=== PATIENT | female | born 1960 | race Caucasian/White ===

== ENCOUNTER 2024-08-22 14:50 | Emergency (ER) | payer MEDICAID, SELFPAY ==
[2024-08-22 14:55] VITALS: BP 148/86; PULSE 61; RESP 18; TEMP 36.9; O2SAT 98
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
[2024-08-22 15:23] VITALS: BMI 41.5
[2024-08-22 15:41] LABS: Collection Type, Urine Clean Catch
--- NOTE | 2024-08-22 15:44 | PD.EDSUICD ---
ED Psych RME/HPI General Chief Complaint: Suicidal Stated Complaint: 5150 Time Seen by Provider: 08/22/24 15:47 Arrival date/time: 08/22/24 14:50 RME / HPI RME / HPI Narrative: DR. MEJIA MAIN ED EVALUATION: 63 year old female with past medical history significant for hypertension, lower back pain, and depression presents to the Emergency Department brought in by police for suicidal ideation. Placed on a 72 hour hold by police for feeling suicidal. Patient called [facility] requesting someone to pick her up due to not wanting to live anymore. She told police she did not want to live anymore and if they did not give her a ride to the hospital she was gonna take care of it herself ; patient does not elaborate on her plan. No other symptoms reported. Related Data Home Medications ?Medication ?Instructions ?Recorded ?Confirmed folic acid 1 mg tablet 1 mg PO QDAY 10/14/17 04/16/22 ergocalciferol (vitamin D2) 1,250 50,000 unit PO QWEEK 04/18/18 04/16/22 mcg (50,000 unit) capsule (Drisdol) allopurinol 100 mg tablet 100 mg PO QDAY 04/16/22 04/16/22 atorvastatin 20 mg tablet 20 mg PO QDAY 04/16/22 04/16/22 bupropion HCl 150 mg tablet,12 hr 150 mg PO QDAY 04/16/22 04/16/22 sustained-release duloxetine 60 mg capsule,delayed 60 mg PO QDAY 04/16/22 04/16/22 release gabapentin 600 mg tablet 600 mg PO BID 04/16/22 04/16/22 levothyroxine 50 mcg tablet 50 mcg PO QDAY 04/16/22 04/16/22 tramadol 50 mg tablet 100 mg PO QID PRN Pain 04/16/22 04/16/22 triamterene 37.5 1 tab PO QDAY 04/16/22 04/16/22 mg-hydrochlorothiazide 25 mg tablet Allergies Allergy/AdvReac Type Severity Reaction Status Date / Time contact metal agent Allergy Intermediate Blister Verified 08/22/24 16:09 LEATHER Allergy Intermediate BLISTERS Uncoded 08/22/24 16:09 Review of Systems Review of Systems Systems Reviewed: All systems reviewed, normal except as documented Narrative Review of Systems: GEN: No fever, no chills, no weight loss EYES: No discharge, no visual changes, no pain HEENT: No ear pain, no congestion, no sore throat PULM: No shortness of breath, no cough, no congestion CV: No chest pain, no dyspnea on exertion, no palpitations GI: No nausea, no vomiting, no diarrhea, no pain, no constipation : No frequency, no urgency and no dysuria MUSC/SKEL: No joint pain, no back pain SKIN: No rash PSYCH: No hallucinations, + depression, + suicidal ideation HEME/LYMPH: No easy bleeding or bruising tendencies NEURO: No weakness, no headache Past Medical History Past Medical History NEUROLOGIC: Positive Migraine CARDIAC: Positive Cardiac Disorders and Hypertension RESPIRATORY: Positive Pneumonia; Negative Tuberculosis GASTROINTESTINAL: Positive Hemorrhoids, Gastroesophageal Reflux Disease and Obesity; Negative Hepatitis, Cirrhosis, Gastrointestinal Bleed or Hiatal Hernia GENITOURINARY: Negative Renal Disease or Kidney Stones REPRODUCTIVE: Positive Endometriosis and Previous Pregnancies; Negative Gonorrhea or Syphilis MUSCULOSKELETAL: Positive Arthritis, Osteoporosis and Gout; Negative Fractures ENT: Negative Cataracts, Blind, Retinal Detachment, Ear Infection or Deafness ENDOCRINE: Positive Hypothyroidism; Negative Endocrine Disorders, Diabetes Mellitus Type 1 or Diabetes Mellitus Type 2 HEMATOLOGIC: Positive Anemia; Negative Sickle Cell Disease or Clotting Problems PSYCHO/SOCIAL: Positive Depression and Anxiety; Negative Eating Disorder OTHER HISTORY: Positive Hospitalization, Shingles, Falls and Chicken Pox; Negative Autoimmune Disease, Blood Transfusions, Anesthesia Reactions, Organ Transplant, Chemotherapy, MRSA, VRSA, Vancomycin-Resistant Enterococci, Human Immunodeficiency Virus (HIV), Clostridium Difficile or Cancer Family History FAMILY HISTORY: Positive Family Respiratory Disorders, Family Cardiac Disorders, Family Cancer and Family Surgery; Negative Family Psychiatric Problems or Family Anesthesia Reaction Surgical History SURGICAL: Positive Hysterectomy; Negative Cardiac Surgery, Endocrine Surgery, Eye Surgery, Nose Surgery, Oral Surgery, Throat Surgery, Abdominal Surgery, Nephrectomy or Organ Transplant Social History SMOKING STATUS: Never smoker SUBSTANCE USE: does not use ALCOHOL: Never ED Exam Narrative Physical exam: GENERAL APPEARANCE: AxOx4, generally well-appearing, no acute distress. HEENT: NC, AT. MMM. EOMI, clear conjunctiva, oropharynx clear. NECK: Supple without lymphadenopathy. No stiffness or restricted ROM. HEART: Normal rate and regular rhythm, normal S1/S1, no m/r/g LUNGS: CTAB, moving air well. No crackles or wheezes are heard. ABDOMEN: Soft, nontender, nondistended with good bowel sounds heard. BACK: No midline C/T/L spine pain or deformity, No CVAT, no obvious deformity. EXTREMITIES: Without cyanosis, clubbing or edema. MUSCULOSKELETAL: FROM of all major joints, no chest tenderness NEUROLOGICAL: Grossly nonfocal. Alert and oriented, moving all 4 extremities. CN not formally tested but appear grossly intact. Observed to ambulate with normal gait. Skin: Warm and dry without any rash. Course Course Course Narrative: 1800: Patient was signed out to Dr. Hill. Past medical, surgical, social and family history reviewed. Vitals and home medications reviewed. Results and treatment plan discussed. They will assume the care of the patient at this time and will follow the patient, pateint on a hold pending psychiatric placement. Quality Measures none Orders Category Date Time Status Diet Regular Diet 08/23/24 Breakfast Active CBC Stat Lab 08/22/24 16:43 Completed CMP [Comprehensive Metabolic Panel] Stat Lab 08/22/24 16:43 Completed Drug Screen,Urine Stat Lab 08/22/24 16:26 Ordered Urinalysis, C/S if Indicated Stat Lab 08/22/24 16:26 Ordered Urine Culture Stat Lab 08/22/24 15:25 Received DiphenhydrAMINE INJ [Benadryl Inj] Med 08/22/24 16:30 Discontinued 50 mg IM X1 ONE LORazepam [Ativan Inj] Med 08/22/24 16:30 Discontinued 2 mg IM X1 ONE cephALEXin [Keflex] Med 08/22/24 21:00 Active 500 mg PO BID Late Tray Request Routine Oth 08/22/24 18:01 Active Vital Signs Vital signs: Vital Signs Temperature 98.4 F 08/22/24 14:55 Pulse Rate 61 08/22/24 14:55 Respiratory Rate 18 08/22/24 14:55 Blood Pressure 148/86 H 08/22/24 14:55 Pulse Oximetry (%) 98 08/22/24 14:55 Oxygen Delivery Method Room Air 08/22/24 14:55 Psych MDM Narrative MDM Narrative:: Yumiko Mcpherson am scribing for and in the presence of Dr. Mejia. Patient data External records reviewed:: [facility] previous records (Reviewed last admission discharge dated 04/19/22, patient admitted for the following: Fall) Clinical information provided by:: patient and law enforcement Social determinants that could affect healthcare access:: mental health Patient has the following chronic illnesses:: hypertension, lower back pain, depression How is presenting disease/condition affected by chronic disease/condition?: caused by Evaluation data The following diagnostics were reviewed and interpreted by me:: lab results Lab and/or radiology exams considered but not ordered:: none Interpretation Summary: pending labs Medications / Prescriptions Medications or Prescriptions considered but not ordered:: none Medication administrations:: Medication Administration History Cephalexin HCl (Cephalexin 250 Mg Capsule) 500 mg PO BID DIONY Stop: 08/25/24 20:59 Discontinued Medications Diphenhydramine HCl (Diphenhydramine Inj 50 Mg/Ml Vial) 50 mg IM X1 ONE Stop: 08/22/24 16:31 Lorazepam (Lorazepam 2 Mg/Ml Vial) 2 mg IM X1 ONE Stop: 08/22/24 16:31 see above if any Consultations Consultation(s) initiated? (list below): No Diagnosis Psych Differential Diagnosis: suicidal ideation, depression and acute anxiety Most likely diagnosis given after review of the tests above:: Depression, suicidal ideation Admission Indicated Admission indicated?: not indicated Admission Request Was there a request for admission?: No Disposition Plan Disposition Plan: other (specify) (Patient signout to the night manager provider.) Discharge Plan Prescriptions/Referrals Prescriptions/Med Rec: No Action folic acid 1 mg Tablet 1 mg PO QDAY ergocalciferol (vitamin D2) [Drisdol] 50,000 unit Capsule 50,000 unit PO QWEEK bupropion HCl 150 mg tablet sustained-release 12 hr 150 mg PO QDAY Patient Comments: take 1 tablet by mouth once daily gabapentin 600 mg tablet 600 mg PO BID atorvastatin 20 mg tablet 20 mg PO QDAY Patient Comments: take 1 tablet by mouth once daily allopurinol 100 mg tablet 100 mg PO QDAY tramadol 50 mg tablet 100 mg PO QID PRN (Reason: Pain) Patient Comments: take 2 tablets by mouth four times a day if needed for pain levothyroxine 50 mcg tablet 50 mcg PO QDAY Patient Comments: take 1 tablet by mouth once daily 30 MINUTES BEFORE BREAKFAST triamterene-hydrochlorothiazid 37.5-25 mg tablet 1 tab PO QDAY Patient Comments: take 1 tablet by mouth once daily duloxetine 60 mg capsule,delayed release(DR/EC) 60 mg PO QDAY Patient Comments: take 1 capsule by mouth once daily Problem List Clinical Impression: Suicidal ideation Patient/Caregiver Discharge Instructions Print Language: Indonesian
[2024-08-22 15:48] LABS: Bacteria,Urine Rare; Bilirubin,Urine Negative (Negative); Blood,Urine Negative (Negative); Clarity,Urine Clear (Clear/Hazy); Color,Urine Yellow (Lt Yel-Yel); Glucose, Urine Negative (Negative); Ketones,Urine Negative (Negative); Leukocyte Esterase,Urine Positive (Negative); Nitrite,Urine Positive (Negative); Protein,Urine Negative (Neg - Trace); RBC,Urine 1 /hpf (0-3); Specific Gravity,Urine 1.019 (1.001-1.035); Squamous Epithelial Cell,Urine 2 /hpf (0-5); Urobilinogen,Urine Negative mg/dL (0.0-1.0); WBC,Urine 11 /hpf (0-5)
[2024-08-22 15:51] LABS: Culture Indicated,Urine Yes
[2024-08-22 16:03] LABS: Amphetamine/Methamp Scrn,U Negative (Negative); Barbiturate Screen,Urine Negative (Negative); Benzodiazepines Screen,Urine Negative (Negative); Benzoylecgonine Screen, Ur Negative (Negative); Fentanyl Screen,Urine Negative (Negative); Opiate Screen,Urine Negative (Negative); THC Screen,Urine Negative (Negative)
--- NOTE | 2024-08-22 16:15 | PC.NURSE ---
Patient demanding to leave, uncooperative, throwing gloves on the floor, attempting to get into c locker, sitter at bedside notified nurse, patient able to be redirected to sit on gurney, however, patient being demanding, verbally abusive to staff, informed patient she can not leave do to 72hr hold placed by [employer], security called to bedside, Dr. mcpherson made aware.
--- NOTE | 2024-08-22 16:15 | PC.NURSE ---
PT THROWING ITEMS IN ROOM NOT WANTING TO LISTEN, BEING NON COMPLIANT AND ARGUMENTATIVE
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
[2024-08-22 16:55] LABS: Basophils % (Auto) 1 % (0-2.5); Eosinophils # (Auto) 0.4 Thou/mm3 (0.0-0.5); Eosinophils % (Auto) 5 % (0-10); Hematocrit 40.7 % (36.0-46.0); Hemoglobin 13.6 g/dL (12.0-16.0); Immature Granulocytes % (Auto) 1 % (0-0); Immature Granulocytes Auto 0.04 Thou/mm3 (0.00-0.00); Lymphocytes # (Auto) 1.7 Thou/mm3 (1.0-4.8); Lymphocytes % (Auto) 22 % (10-50); Mean Corpuscular HGB Conc 33.4 g/dl (31.0-37.0); Mean Corpuscular Hemoglobin 28.3 pg (25.0-35.0); Mean Corpuscular Volume 85 fL (80-100); Monocytes # (Auto) 0.4 Thou/mm3 (0.0-0.8); Monocytes % (Auto) 5 % (0-12); Neutrophils # (Auto) 5.1 Thou/mm3 (1.8-7.7); Neutrophils % (Auto) 67 % (37-80); Nucleated Red Blood Cell % 0 /100 WBC (0); Platelet Count 233 Thou/mm3 (140-440); RDW Standard Deviation 39.7 fL (36.4-46.3); Red Blood Count 4.81 Miln/mm3 (4.00-5.20); White Blood Count 7.5 Thou/mm3 (3.6-11.0)
[2024-08-22 17:11] VITALS: BP 110/65; PULSE 60; RESP 18; TEMP 36.8; O2SAT 95
[2024-08-22 17:28] LABS: Alanine Aminotransferase 8 U/L (10-49); Albumin, Serum 4.4 gm/dL (3.4-4.8); Albumin/Globulin Ratio 1.8 (1.2-2.2); Alkaline Phosphatase 101 U/L (46-116); Anion Gap 8 (7-16); Aspartate Amino Transferase 13 U/L (0-34); BUN/Creatinine Ratio 17 Ratio (12-20); Bilirubin,Total 0.7 mg/dL (0.3-1.2); Blood Urea Nitrogen 19 mg/dL (9-23); Calcium 9.6 mg/dL (8.3-10.6); Calcium (Corrected) 9.6 mg/dL (8.5-10.1); Carbon Dioxide 26.2 mMol/L (20.0-31.0); Chloride 105 mMol/L (98-107); Creatinine (Component) 1.1 mg/dL (0.6-1.3); Estimated Creatinine Clearance 57.4 mL/min (>60); Globulin 2.5 gm/dL (2.3-3.5); Glucose 109 mg/dL (74-106); Osmolality,Calculated 280 (275-295); Sodium 139 mMol/L (136-145); Total Protein 6.9 gm/dL (5.7-8.2); eGFR 57 See Note
--- NOTE | 2024-08-22 18:13 | PD.EDADDENDU ---
Emergency Room Addendum <Lori Hi - Last Filed: 08/23/24 05:51> Addendum Narrative: 1800: Care assumed from Dr. Mejia. Past medical, surgical, social and family history reviewed. Vitals and home medications reviewed. Results and treatment plan discussed. I will assume the care of the patient at this time and will follow the patient, pending evaluation and placement. Please refer to the emergency department record for history and examination from initial visit. The following addendum documentation note is intended to reflect any pending information, findings, or radiology results not included in the patient?s initial chart. Patient aggressive, yelling obscenities at staff, banging and kicking door. Threatening staff. Behavior escalating. Unable to be redirected. Security was called and patient charged at guard attempting to tackle him. Medications ordered earlier by day provider administered by nurse. Continues to try and hit and kick staff. Accusing security of trying to look up her gown. Placed in restraints for safety. Attempted to converse with patient. Patient continues to yell obscenities and scream that she is going home. Tried to explain the 5150 psychiatric hold placed by PD and our limitations and inability to let her go home. Patient continues to scream at me. Refuses to converse about care. States she is going to lu the nurses, the security, the police, and states she will only talk to the head of the hospital in order to lu him. Very aggressive and agitated. Unable to make plan for releasing restraints at this time. I advised patient I would return later to reevaluate her. PMH: fibromyalgia, spinal surgery with pins, HTN 0600: [facility]. Past medical, surgical, social and family history reviewed. Vitals and home medications reviewed. Results and treatment plan discussed. They will assume the care of the patient at this time and will follow the patient, pending evaluation and placement. <Shi Hill MD - Last Filed: 08/23/24 04:38> Addendum Narrative: 1800: Care assumed from Dr. Mejia. Past medical, surgical, social and family history reviewed. Vitals and home medications reviewed. Results and treatment plan discussed. I will assume the care of the patient at this time and will follow the patient, pending mental evaluation ad possible placement. Please refer to the emergency department record for history and examination from initial visit. The following addendum documentation note is intended to reflect any pending information, findings, or radiology results not included in the patient?s initial chart. Patient aggressive, yelling obscenities at staff, banging and kicking door. Threatening staff. Behavior escalating. Unable to be redirected. Security was called and patient charged at guard attempting to tackle him. Medications ordered earlier by day provider administered by nurse. Continues to try and hit and kick staff. Accusing security of trying to look up her gown. Placed in restraints for safety. Attempted to converse with patient. Patient continues to yell obscenities and scream that she is going home. Tried to explain the 5150 psychiatric hold placed by PD and our limitations and inability to let her go home. Patient continues to scream at me. Refuses to converse about care. States she is going to lu the nurses, the security, the police, and states she will only talk to the head of the hospital in order to lu him. Very aggressive and agitated. Unable to make plan for releasing restraints at this time. I advised patient I would return later to reevaluate her. PMH: fibromyalgia, spinal surgery with pins, HTN 0600: [facility]. Past medical, surgical, social and family history reviewed. Vitals and home medications reviewed. Results and treatment plan discussed. They will assume the care of the patient at this time and will follow the patient, pending . Attestation <Lori Hi - Last Filed: 08/23/24 05:51> Attestation Scribe Attestation: I, Reshma Hi, am scribing for and in the presence of Dr. Hill. Provider Notation: Although this document has been carefully reviewed, there may still be some phonetic and other typographical errors. These errors are purely grammatical due to imperfections in the software program and should not be construed in any way to compromise the substance of the patient's medical care during this visit.
--- NOTE | 2024-08-22 18:20 | PC.NURSE ---
[facility] WAITING TO TALK TO HER CHARGE
--- NOTE | 2024-08-22 18:22 | PC.NURSE ---
1:1 dater called nurse to bedside, patient stating if you re not gonna let me leave, I'm gonna make it fun for both of us while simutaneously pulling at iv pole attached to gurney. Informed patient, once again the reason why she is in the ER and unable to leave do to 72 hr hold, patient continues to talk over nurse, being verball abusive. Patient able to be redirected at this time and lyed down in gurney.
--- NOTE | 2024-08-22 19:43 | PC.NURSE ---
Pt threatening staff that she is going to throw herself on the floor, pt is pacing back and forth and room with an even and steady gait and stating she needs her cane or she will lu us when when she falls
[2024-08-22] MEDS: LORazepam 2 MG/ML VIAL IM (21:19)
[2024-08-22] MEDS: DiphenhydrAMINE INJ 50 MG/ML VIAL IM (21:19)
--- NOTE | 2024-08-22 21:32 | PC.NURSE ---
Pt being aggressive, punching window, telling staff to go back to [place] , and calling staff bitches . PEr MD Hill Give PRN MEDs, pt not redirectable security assistance needed
--- NOTE | 2024-08-22 23:38 | PC.NURSE ---
pt refused vital signs multiple times when trying to revital pt became verbally aggressive and physically combative. nurse and charge nurse are aware.
--- NOTE | 2024-08-23 00:53 | PC.NURSE ---
Pt resting cooperatively in bed, feet restrains, D/C initially to assess pt behavior.. She stopped yelling and wasn't cussing at staff. Sitter stated pt was trying to get comfortable. Wrist restraints are removed at this time, close monitoring on pt.
[2024-08-23 06:23] VITALS: BP 136/66; PULSE 51; RESP 16; TEMP 36.7; O2SAT 99
--- NOTE | 2024-08-23 06:30 | PC.NURSE ---
Pt slept restfully through the night, no behavioral outbursts.
--- NOTE | 2024-08-23 07:17 | PC.NURSE ---
pt asleep will assess when awake. 1:1 sitter
--- NOTE | 2024-08-23 07:26 | PD.EDADDENDU ---
Emergency Room Addendum Addendum Narrative: 0600: Care assumed from Dr. Hill, the previous shift emergency physician. Past medical, surgical, social and family history reviewed. Vitals and home medications reviewed. I will assume the care of the patient at this time, pending placement. The patient was placed in ED observation care at 08/23/2024 at 0600 hours. The patient was placed in ED observation care because of undifferentiated decompensated behavioral health evaluation, no behavioral health bed available. The patients past medical history, social history, and family history were reviewed. The plan of care will include serial examinations. Please refer to the emergency department record for history and examination.? While in ED observation the patient will have access to water, food, and personal hygiene. If the patient takes home medication(s), they will be continued in ED observation. Physical exam by me shows patient under no acute distress at this time. 1800: Patient was signed out to Dr. Hill Past medical, surgical, social and family history reviewed. Vitals and home medications reviewed. Results and treatment plan discussed. They will assume the care of the patient at this time and will follow the patient, pending placement.
--- NOTE | 2024-08-23 08:04 | PC.NURSE ---
pt refused breakfast
[2024-08-23 08:27] VITALS: BP 119/68; PULSE 58; RESP 15; TEMP 36.7; O2SAT 99
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
--- NOTE | 2024-08-23 09:42 | PC.NURSE ---
pt refused am meds
[2024-08-23 10:34] VITALS: BP 117/74; PULSE 59; RESP 14; TEMP 36.7; O2SAT 99
--- NOTE | 2024-08-23 12:22 | PC.NURSE ---
PT REFUSED LUNCH TRAY
--- NOTE | 2024-08-23 13:08 | PC.CC ---
Addendum entered by Cherry Kebede 08/23/24 17:15: 1715 Abraham Bray reports that they are at capacity and the patient continues to be in queue there could be some discharges tomorrow AM. Addendum entered by Cherry Kebede 08/23/24 17:07: 1655 Abraham NUNO- Waiting for a call back 1650 Brittany Montalvo reports she will provide update to her doctor that patient does not want to provide med reconciliation. Original Note: 1325 [facility] requested referral be resent. ASW re-sent the packet. 1322 [place] AmadoDarcie reports that they will review the packet and will be kept in queue. They will be reviewing packet for all three locations. 1320 Brittany Potts, patient is in queue if they get to her they will give us a call back. 1318 Arlette AlexChela reports no female beds will be kept in the queue 1313 Abraham Fuentes they will reveiw packet but will need a short ariza 1310 [facility] 1308 Ariadne Alex reports that there are no female bed available.
--- NOTE | 2024-08-23 13:45 | PC.NURSE ---
BIPIN WITH ANNA IN HIMROD TO GET REPORT ON PT WILL NEED MED RECONCILE SHE ADVISED SHE WILL CALL BACK IN 45 MIN
--- NOTE | 2024-08-23 14:15 | PC.NURSE ---
PT LAYING IN ROOM YELLING FOR US TO CALL HER DR WE ARE KEEPING HER HERE, TRIED TO REDIRECT PT YET SHE KEEP YELLING
--- NOTE | 2024-08-23 14:22 | PC.NURSE ---
TRYING TO RECONCILE MEDS WITH PT SHE STATES SHE NOT TELLING ME SHIT ABOUT HER MEDS. AND CONTINUED TO YELLING AND BEING UNCOOPERATIVE CANT RECONCILE MEDS NEED FOR PLACEMENT SHE WILL NOT PROVIDE INFO
--- NOTE | 2024-08-23 14:42 | PC.NURSE ---
BIPIN WITH PROTESTANT CALLED BACK TO GO OVER MEDS ADVISED I WAS NOT ABLE TO RECONCILE WITH PATIENT WILL TRY TO GET MED INFO
--- NOTE | 2024-08-23 17:55 | PC.NURSE ---
pt refused dinner tray
[2024-08-23 18:00] VITALS: BP 125/72; PULSE 53; RESP 16; TEMP 36.8; O2SAT 98
--- NOTE | 2024-08-23 19:44 | PD.EDADDENDU ---
Emergency Room Addendum Addendum Narrative: 1800: Care assumed from Dr. Chua. Past medical, surgical, social and family history reviewed. Vitals and home medications reviewed. Results and treatment plan discussed. I will assume the care of the patient at this time and will follow the patient, pending evaluation and placement. Please refer to the emergency department record for history and examination from initial visit. The following addendum documentation note is intended to reflect any pending information, findings, or radiology results not included in the patient?s initial chart. The patient continues in ED observation care at 08/23/2024 at 1800 hours. The patient was placed in ED observation care because of undifferentiated decompensated behavioral health evaluation, no behavioral health bed available. The patients past medical history, social history, and family history were reviewed. The plan of care will include serial examinations. While in ED observation the patient will have access to water, food, and personal hygiene. If the patient takes home medication(s), they will be continued in ED observation. Physical exam by me shows patient under no acute distress at this time. 0600: Care signed out to [facility]. Past medical, surgical, social and family history reviewed. Vitals and home medications reviewed. Results and treatment plan discussed. They will assume the care of the patient at this time and will follow the patient, pending evaluation and placement. MD Attestation Attestation Scribe Attestation: I, Reshma Hi, am scribing for and in the presence of Dr. Hill. Provider Notation: Although this document has been carefully reviewed, there may still be some phonetic and other typographical errors. These errors are purely grammatical due to imperfections in the software program and should not be construed in any way to compromise the substance of the patient's medical care during this visit.
[2024-08-23 21:05] VITALS: BP 119/65; PULSE 60; RESP 17; TEMP 36.8; O2SAT 99
--- NOTE | 2024-08-23 21:53 | PC.NURSE ---
Pt grabbed a flush and spilled it on the floor then continued to refill the flush from the faucet to throw all over the floor and grabbed soap and spread it on the floor, engineering was called to have them turn the water off and remove soap from dispenser, due to pt risk of slipping and falling
--- NOTE | 2024-08-23 23:01 | PC.NURSE ---
Pt resting comfortably in bed, not yelling, calm in gurney.
--- NOTE | 2024-08-24 00:44 | PC.NURSE ---
pt offered a blanket, pt was very pleasant and cooperative. Stated she takes pain medication and asked what she takes. Medication information given to MD Hill orders for medication to be administered. will follow through with given orders
[2024-08-24] MEDS: traMADol HCL 50 MG TABLET PO (00:51)
[2024-08-24] MEDS: cephALEXin 250 MG CAPSULE 500 MG PO (00:51)
[2024-08-24 01:00] VITALS: BP 118/79; PULSE 55; RESP 18; TEMP 36.6; O2SAT 99
--- NOTE | 2024-08-24 01:06 | PC.NURSE ---
This consumer loan underwriter offered pt food, while she was directable. Pt agreed to take pain med as well as Antibiotic ordered for UTI. after she has her meal, so that the antibiotic doesn't make her sick This consumer loan underwriter told Pt to ask her nurse for pain meds if they are needed for her to be more comfortable. Pt allowed to have dinner tray at bedside for her to eat her meal out of. Pt calm in [facility].
[2024-08-24 04:13] VITALS: BP 117/76; PULSE 53; RESP 17; TEMP 36.6; O2SAT 98
[2024-08-24 06:06] VITALS: BP 124/91; PULSE 57; RESP 18; TEMP 36.5; O2SAT 97
[2024-08-24 08:19] LABS: Acetaminophen < 2.0 mcg/mL (10.0-20.0); Alcohol, Blood Medical < 3.0 mg/dL (0-10.0); Magnesium 2.1 mg/dL (1.6-2.6); Salicylate < 3.0 mg/dL; Thyroid Stimulating Hormone 2.19 uIU/mL (0.55-4.78)
--- NOTE | 2024-08-24 08:19 | PC.NURSE ---
Pt refused Breakfast tray stated she wanted to go home, We've been lying to her this marine underwriter informed her that her breakfast tray is available when she is ready to eat .
[2024-08-24 08:44] VITALS: BP 122/77; PULSE 53; RESP 17; TEMP 36.6; O2SAT 96
--- NOTE | 2024-08-24 12:45 | PC.RT ---
The following facilities have been contacted: [facility]: [facility]- female bed available. Updated referral faxed. [facility]: [facility]- female bed is available. Updated referral faxed [facility]: Kayla- no beds available. [place]: Rom[facility]- no beds available, may have discharges in the evening. Packet faxed. [facility]: Precious- No beds available, no foreseen discharges at the moment. [facility]: [facility]- No beds available, requested packet be resubmitted. [facility]: Abby- Pamela discharging patients, requested packet be resubmitted for review. [facility]/ [facility] Am[facility]: Ora- reviewed packet, [facility]. Packets were also re-faxed to the [facility] facilities.
[2024-08-24 12:47] VITALS: BP 155/90; PULSE 87; RESP 21; O2SAT 100
[2024-08-24] MEDS: HALOPERIDOL LACT INJ 5 MG/ML VIAL 10 MG IM (13:43)
--- NOTE | 2024-08-24 13:45 | PC.NURSE ---
Pt. is yelling profanities at pts and staff that pass by. Pt attempting to open sliding door and getting anything she could and throwing it around the room. Pt, is a danger to self and others. Pt. states it is bc she has anxiety. Norma ordered.
--- NOTE | 2024-08-24 14:59 | PC.CC ---
Addendum entered by Cherry Kebede 08/24/24 18:19: 1804 Nicolette with [facility] made contact with ASW and reports they do not have a bed but are expecting a discharge for female bed in the and hospice social worker to follow up at [id number]. Original Note: 1436 ASW made contact with [facility] who reports she will be reviewing packet. 1413 ASW made contact with [facility] who reports they are reviewing patient's packet with .
--- NOTE | 2024-08-24 17:30 | PD.EDADDENDU ---
Emergency Room Addendum Addendum Narrative: I took over the care from Dr. RANGEL at 6 AM on 08/24/2024, see her notes for complete H&P and ED course. During my watch, she needed Haldol 10 mg IM for severe agitation and aggression verbally and physically. Otherwise, she remained stable. At 6 PM on 08/24/2024, the care of the patient was transferred to the night physician. Alejandro Pompa MD
--- NOTE | 2024-08-24 17:55 | PC.CC ---
Cherry REIS called PAC to see if patient is connected to outpatient mental health services they are closed for the day and answering service is unable to provide information.
--- NOTE | 2024-08-24 18:27 | PC.NURSE ---
Pt. is doing much better. This nurse talked to her about HOLD processs and explained the 72 hour hold. I attempted to call sister per pt. request but phone is out of service. Crystallography Teacher at explaining that if she behaves she could leave at the expiration of the 72 hour hold.
--- NOTE | 2024-08-24 18:47 | PC.CC ---
Cherry REIS met with patient [id number] introduced self, role, and reason for visit. ?Patient appeared alert and oriented to self, location, and situation. Patient was requesting RN Sariah attempt to make contact with her sister Sophia but the phones are disconnected. Patient reports she is not connected to outpatient mental health services and receives medication from her primary care provider. Patient reports she is prescribed Cymbalta. Patient is requesting to go home. ASW informed patient that her hold expires tomorrow and would be re-evaluated. Patient agreed to being re-evaluated tomorrow.
[2024-08-24 20:56] VITALS: BP 123/83; PULSE 54; RESP 18; TEMP 36.6; O2SAT 99
--- NOTE | 2024-08-24 22:09 | PD.EDADDENDU ---
Emergency Room Addendum <Lori Hi - Last Filed: 08/24/24 22:10> Addendum Narrative: 1800: Care assumed from Dr. Pompa. Past medical, surgical, social and family history reviewed. Vitals and home medications reviewed. Results and treatment plan discussed. I will assume the care of the patient at this time and will follow the patient, pending evaluation and placement. Please refer to the emergency department record for history and examination from initial visit. The following addendum documentation note is intended to reflect any pending information, findings, or radiology results not included in the patient?s initial chart. The patient continues in ED observation care at 08/24/2024 at 1800 hours. The patient was placed in ED observation care because of undifferentiated decompensated behavioral health evaluation, no behavioral health bed available. The patients past medical history, social history, and family history were reviewed. The plan of care will include serial examinations. While in ED observation the patient will have access to water, food, and personal hygiene. If the patient takes home medication(s), they will be continued in ED observation. Physical exam by me shows patient under no acute distress at this time. 0600: Care signed out to [facility] provider. Past medical, surgical, social and family history reviewed. Vitals and home medications reviewed. Results and treatment plan discussed. They will assume the care of the patient at this time and will follow the patient, pending evaluation and placement. <Tia Molina - Last Filed: 08/25/24 01:19> Addendum Narrative: 1800: Care assumed from Dr. Pompa. Past medical, surgical, social and family history reviewed. Vitals and home medications reviewed. Results and treatment plan discussed. I will assume the care of the patient at this time and will follow the patient, pending evaluation and placement. Please refer to the emergency department record for history and examination from initial visit. The following addendum documentation note is intended to reflect any pending information, findings, or radiology results not included in the patient?s initial chart. The patient continues in ED observation care at 08/24/2024 at 1800 hours. The patient was placed in ED observation care because of undifferentiated decompensated behavioral health evaluation, no behavioral health bed available. The patients past medical history, social history, and family history were reviewed. The plan of care will include serial examinations. While in ED observation the patient will have access to water, food, and personal hygiene. If the patient takes home medication(s), they will be continued in ED observation. Physical exam by me shows patient under no acute distress at this time. Urine cultures resulted and are positive for Citrobacter freundii. I am switching the patient's antibiotic to Bactrim. 0600: Care signed out to [facility] provider. Past medical, surgical, social and family history reviewed. Vitals and home medications reviewed. Results and treatment plan discussed. They will assume the care of the patient at this time and will follow the patient, pending evaluation and placement. Attestation <Lori Hi - Last Filed: 08/24/24 22:10> MD Attestation Scribe Attestation: I, Reshma Hi, am scribing for and in the presence of Dr. Hill. Provider Notation: Although this document has been carefully reviewed, there may still be some phonetic and other typographical errors. These errors are purely grammatical due to imperfections in the software program and should not be construed in any way to compromise the substance of the patient's medical care during this visit.
[2024-08-25 06:19] VITALS: BP 131/75; PULSE 50; RESP 16; TEMP 36.7; O2SAT 98
[2024-08-25 07:59] VITALS: BP 128/71; PULSE 62; RESP 18; TEMP 36.6; O2SAT 95
[2024-08-25] MEDS: cephALEXin 250 MG CAPSULE 500 MG PO (09:41)
[2024-08-25] MEDS: TRIMETHOPRIM/SULFA 160/800 DS TABLET 1 TAB PO (09:42)
--- NOTE | 2024-08-25 10:54 | PD.EDADDENDU ---
Emergency Room Addendum Addendum Narrative: I took over the care from Dr. RANGEL at 6 AM on 08/25/2024, see her notes for complete H&P and ED course. I reviewed all diagnostic test results. At this point, diagnoses include suicidal ideation and UTI. After evaluation, our ED childcare center administrator made decision to discharge the patient with safety plan. Based on my best medical judgment, made decision no further evaluation or treatment indicated at this time. Patient understands and agrees to the discharge instructions customized and printed, see below. Discharge Instructions from Dr. Pompa: 1. After evaluation, our ED Chemical Processing Equipment Repairer discharged you with safety plan. Make sure to follow the safety plan. 2. You don't meet the criteria for emergency nursing home in psychiatric unit against your will.? Because you currently have no thoughts of hurting yourself or others.? And there are no signs of psychosis (loss of touch with reality) which can potentially be harmful to you and others. 3. For your UTI, take Bactrim as prescribed. To flush your urinary tract, increase oral fluid and maintain clear urine. If dark or yellow, increase oral fluid. 4. See a private doctor on 08/27/24 for recheck and further care. Ask to review all test results and official radiology reports, to make sure you receive all necessary follow-ups and monitoring, including your final urine culture results. Ask for help with psychiatric services available to you. 5. Seek immediate medical care (you can call 911 any time) with thoughts of hurting yourself or others or with any concerns, including fever. Alejandro Pompa MD
[2024-08-25 10:56] VITALS: BP 153/77; PULSE 69; RESP 17; TEMP 36.7; O2SAT 98
--- NOTE | 2024-08-25 11:02 | PC.SS ---
Addendum entered by ARIES Maciel 08/25/24 11:07: Patient's 5150 Hold was rescinded. Patient to d/c home with a safety plan. [employer] transportation arranged for the patient to return home. ETA 5mins. Bed side nurse is aware. Original Note: ASW met with the patient [id number] for re-evaluation this AM. ASW introduced self, role and reason for contact. The patient was informed of the limits of confidentiality and was explained the process of a 5150 hold. The patient verbalized understanding. The patient appeared alert and oriented to self, place and situation. The patient presented well, with an organized thought process and was able to engage in the assessment. No signs of delusion or paranoia observed. The patient reported she is feeling better today as she slept good . The patient reported feeling well rested and commented that she is ready to go home . The patient confirmed her home address to be [address] [place] [address]. The patient reports that her adult grandson, Obdulio Monge lives with her. Patient reports she does not recall his contact number by memory however is stored in her cell phone. The patient gives verbal consent for her grandson Obdulio and sister Bhavna Nieves to be contacted once able to charge her cellular device to engage for safety. ASW assessed the patient for SI/HI. The patient denied both. The patient informed although she has had previous SI thought and attempts in the past with medications. Patient reported she was never successful as she has her previous ex-spouse support to guide her and help her through tough situations. The patient denies audio and visual hallucinations. The patient reports she follows Dr. Sariah Holly for primary care. The patient reports her PCP prescribed her with Cymbalta, unknown milligrams, for depression. The patient informs she has taken the medication for a couple years now and is complaint with medication. The patient denies previously being admitted to a psychiatric hospital. The patient denies substance use. The patient reports only smoking cigarettes. The patient reports she would be willing to safety plan if able to. The patient was explained what a safety plan consists of, resources, referrals to mental health services and outside person for support. The patient informs she is willing to safety plan. The patient reports she has a daughter named, Ayanna Womack, however reports that Ayanna lives out of state in [place]. The patient reports being agreeable to follow up with outpatient mental health services. ASW contacted the patient's sister Bhavna Nieves to determine if she would be willing to safety plan. Bhavna was explained what brought the patient in to the ED and the course of what a safety plan consist of. Bhavna was agreeable to provide the patient with outside support for the next 72 hrs. ASW also contacted patient's grandson, Obdulio Monge to determine if he would be willing to safety plan. Obdulio was explained what brought the patient in to the ED and the course of what a safety plan consist of. Obdulio was agreeable to provide the patient with outside support for the next 72 hrs. After clinical consultation with Care Continuous Wave Operator, Kiesha Hawk LCSW, the decision was made that the patient is no longer meeting criteria for 5150 Hold and could engage in a safety plan with appropriate resources/referrals and outside support network. ASW referred the patient to outpatient mental health services with [facility] in [place], per the patient's request. Patient was scheduled for an appointment for an appointment on 08/26/[address] [facility] with the provider Maggi Roque for outpatient mental health services. Patient was also referred to [facility]. Patient was given referral information and was provided with mental health resources, including crisis suicide prevention line, warm line and the local authorities contact information. Patient is also aware she can reach out to her support network for additional support. Patient verbalized understanding and would like transportation services set up at this time to return home. Patient?s sister, Bhavna to follow up with the patient once discharged from the ED back home. Patient is agreeable. No further questions at this time.
[2024-08-25 11:14] VITALS: RESP 17; TEMP 36.7; O2SAT 98
== END 2024-08-25 11:17 | disposition home or self-care (01) ==
PROVIDERS: Emergency Medicine; Emergency Provider Emergency Medicine
DX: R45.851 Suicidal ideations (principal); N39.0 Urinary tract infection, site not specified; R45.1 Restlessness and agitation; F32.A Depression, unspecified; M54.50 Low back pain, unspecified; I10 Essential (primary) hypertension
CPT/HCPCS: 36415; 80053; 80307; 80320; 80329; 81001; 83735; 84443; 85025; 87077; 87086; 87186; 90839; 96127; 96372; 99285; J1200; J1630; J2060; A9270; G0480

== ENCOUNTER → 2025-01-22 | Outpatient (CLI) | payer MEDICAID, SELFPAY ==
--- NOTE | 2025-01-22 12:00 | XR_ITS ---
Examination: Bone densitometry Date and time of exam:January 22, 2025 1202 hours INDICATIONS: Hysterectomy age 29, levothyroxine 5 years, family history sister mother osteoporosis Technique: Lumbar spine and hip total bone mineralization values of an calculated. Peak reference and age match control results have been displayed. Findings: Lumbar spine total bone mineralization is1.217 gm/cm2. This is 1.5 standard deviations above peak reference. This is 3.2 standard deviations above age-matched controls. Hip total bone mineralization is 0.996 gm/cm2 This is 0.4 standard deviations above peak reference. This is 1.6 standard deviations above age-matched controls Impression: There is normal mineralization based on lumbar spine measurements. There is normal mineralization based on hip measurements Lumbar mineralization is increased 1.5% compared with January 12, 2009 Hip mineralization is decreased 11.3% compared with January 12, 2009
== END | disposition home or self-care (01) ==
LOC: CDIM 11:26
PROVIDERS: Referring Provider Nurse Practitioner Family; Visit Provider Nurse Practitioner Family
DX: Z13.820 Encounter for screening for osteoporosis (principal)
CPT/HCPCS: 77080